=== PATIENT | male | born 1965 | race African-American/Black ===

== ENCOUNTER 2017-10-26 01:21 | Emergency (ER) | payer OTHER ==
--- NOTE | 2017-10-26 01:49 | PDOC ---
History of Present Illness - General History Source: Patient Exam Limitations: No Limitations - History of Present Illness Initial Comments: 10/26/17 04:28 Patient is a 52 year old male with a significant past medical history of Polysubstance abuse, who presents to the ED with complaints of right super pubic pain that began just prior to ED arrival. Patient reports experiencing sudden onset of right super pubic pain that began this afternoon and has shown no signs of subsiding. Patient does not rate pain on scale but does say it is severe enough that he is unable to sit up secondary to pain. He reports pain radiates down to his groin as well as to his lower abdomen and left superpubic area. Denies chest pain, Sob. Denies nausea, vomiting. Denies fevers, chills. Denies trauma to affected area. Denies any other symptoms. Allergies: None Social history: Current everyday smoker. No alcohol. Current Marijuana and cocaine user (last used yesterday). Surgical history: None PMD: None <Ari Arvizu - Last Filed: 10/26/17 04:28> <Susie Borrero - Last Filed: 10/26/17 06:12> - General Stated Complaint: ABDOMINAL PAIN Time Seen by Provider: 10/26/17 01:48 Past History <Ari Arvizu - Last Filed: 10/26/17 04:28> - Past Medical History Anemia: Yes (HX SICKLE CELL TRAIT) Asthma: Yes (Uses Albuterol Inhaler.) Cancer: No Cardiac Disorders: No CVA: No COPD: No CHF: No Dementia: No Diabetes: No GI Disorders: No Disorders: No HTN: No Hypercholesterolemia: No Kidney Stones: No Liver Disease: No Seizures: No Thyroid Disease: No - Surgical History Abdominal Surgery: No Appendectomy: No Cardiac Surgery: No Cholecystectomy: No Lung Surgery: No Neurologic Surgery: No Orthopedic Surgery: Yes ( 2005 FX CHEEK BONE,BOTH) - Reproductive History Testicular Surgery: No - Suicide/Smoking/Psychosocial Hx Smoking History: Current every day smoker Have you smoked in the past 12 months: Yes Number of Cigarettes Smoked Daily: 10 Cigars Per Day: 0 'Breaking Loose' booklet given: 09/01/17 (GIVEN ON UNIT.) Hx Alcohol Use: No Drug/Substance Use Hx: Yes (PCP x 2 week) Substance Use Type: Cocaine (100 daily) Hx Substance Use Treatment: Yes (detox. [facility], [facility]) <BorreroSusie - Last Filed: 10/26/17 06:12> - Past Medical History Allergies/Adverse Reactions: Allergies Allergy/AdvReac Type Severity Reaction Status Date / Time No Known Allergies Allergy Verified 10/26/17 02:33 Review of Systems - Review of Systems Able to Perform ROS?: Yes Comments:: 10/26/17 04:28 GENERAL/CONSTITUTIONAL: No fever or chills. No weakness. HEAD, EYES, EARS, NOSE AND THROAT: No change in vision. No ear pain or discharge. No sore throat. CARDIOVASCULAR: No chest pain or shortness of breath. RESPIRATORY: No cough, wheezing, or hemoptysis. GASTROINTESTINAL: No nausea, vomiting, diarrhea or constipation. GENITOURINARY: +Right superpubic pain. No dysuria, frequency, or change in urination. MUSCULOSKELETAL: No joint or muscle swelling or pain. No neck or back pain. SKIN: No rash NEUROLOGIC: No headache, vertigo, loss of consciousness, or change in strength/ sensation. ENDOCRINE: No increased thirst. No abnormal weight change. HEMATOLOGIC/LYMPHATIC: No anemia, easy bleeding, or history of blood clots. ALLERGIC/IMMUNOLOGIC: No hives or skin allergy. All Other Systems: Reviewed and Negative <Ari Arvizu - Last Filed: 10/26/17 04:28> *Physical Exam - Vital Signs Last Vital Signs Temp Pulse Resp BP Pulse Ox 98.1 F 87 16 158/103 100 10/26/17 02:33 10/26/17 02:33 10/26/17 02:33 10/26/17 02:33 10/26/17 02:33 - Physical Exam Comments: 10/26/17 04:28 GENERAL: +Limited Exam due to non compliance. Awake, alert, and fully oriented, in no acute distress HEAD: No signs of trauma EYES: PERRLA, EOMI, sclera anicteric, conjunctiva clear ENT: Auricles normal inspection, hearing grossly normal, nares patent, oropharynx clear without exudates. Moist mucosa NECK: Normal ROM, supple, no lymphadenopathy, JVD, or masses LUNGS: Breath sounds equal, clear to auscultation bilaterally. No wheezes, and no crackles HEART: Regular rate and rhythm, normal S1 and S2, no murmurs, rubs or gallops ABDOMEN: +Gassy. Soft, nontender, normoactive bowel sounds. No guarding, no rebound. No masses EXTREMITIES: Normal range of motion, no edema. No clubbing or cyanosis. No cords, erythema, or tenderness NEUROLOGICAL: Cranial nerves II through XII grossly intact. Normal speech, normal gait SKIN: Warm, Dry, normal turgor, no rashes or lesions noted. <Ari Arvizu - Last Filed: 10/26/17 04:28> ED Treatment Course - LABORATORY CBC & Chemistry Diagram: 10/26/17 05:00 <Susie Borrero - Last Filed: 10/26/17 06:12> Medical Decision Making - Medical Decision Making 10/26/17 03:58 Pt complains of right inguinal pain and right testicle pain. Exam is normal. Pt is afebrile. He denies having sex. Last sex encounter was over 2 months ago. Pt does no heavy lifting. He will have a UA done and basic labs. In the AM we will get a scrotal sono and he will be signed out to the day ER team. 10/26/17 06:12 CBC is normal. CHem and UA are still pending. <Susie Borrero - Last Filed: 10/26/17 06:12> *DC/Admit/Observation/Transfer - Attestations Scribe Attestion: 10/26/17 04:28 Documentation prepared by Ari Arvizu, acting as medical language specialist for Susie Borrero MD/DO. <Ari Arvizu - Last Filed: 10/26/17 04:28>
[2017-10-26 02:35] VITALS: BMI 28.1
[2017-10-26 05:55] LABS: HEMATOCRIT 43.3 % (35.4-49); MEAN PLT VOLUME 8.9 fl (7.5-11.1); WHITE BLOOD COUNT 6.3 K/mm3 (4.0-10.0)
[2017-10-26 05:59] LABS: BASO % 1.2 % (0-2.0); HEMOGLOBIN 14.4 GM/dL (11.7-16.9); LYMPH % 18.9 % (8-40); MCH 28.6 pg (25.7-33.7); MCHC 33.3 g/dl (32.0-35.9); MEAN CELL VOLUME 85.9 fl (80-96); MONO % 13.8 % (3.8-10.2); NEUT % 65.1 % (42.8-82.8); PLATELET COUNT 198 K/MM3 (134-434); RBC 5.04 M/mm3 (4.00-5.60); RDW 14.4 % (11.9-15.9)
[2017-10-26 08:02] VITALS: BP 132/76; PULSE 65; TEMP 98.3
[2017-10-26 09:46] LABS: URINE APPEARANCE CLEAR; URINE BILIRUBIN NEGATIVE (NEGATIVE); URINE BLOOD NEGATIVE (NEGATIVE); URINE COLOR YELLOW; URINE GLUCOSE (UA) NEGATIVE (NEGATIVE); URINE KETONE TRACE (NEGATIVE); URINE NITRITE NEGATIVE (NEGATIVE); URINE PROTEIN NEGATIVE (NEGATIVE); URINE UROBILINOGEN 4.0 E.U/dl mg/dL (0.2-1.0)
[2017-10-26 10:03] LABS: URINE LEUK ESTERASE 1+ (NEGATIVE)
[2017-10-26 10:11] LABS: EPI CELLS RARE /HPF (FEW); URINE MUCUS RARE
--- NOTE | 2017-10-26 10:12 | PDOC ---
*Physical Exam - Vital Signs Last Vital Signs Temp Pulse Resp BP Pulse Ox 98.3 F 65 16 132/76 97 10/26/17 07:25 10/26/17 07:25 10/26/17 07:25 10/26/17 07:25 10/26/17 07:25 ED Treatment Course - LABORATORY CBC & Chemistry Diagram: 10/26/17 05:00 - ADDITIONAL ORDERS Additional order review: Laboratory Results 10/26/17 09:20 Urine Color Yellow Urine Appearance Clear Urine pH 7.0 Ur Specific [place] 1.020 Urine Protein Negative Urine Glucose (UA) Negative Urine Ketones Trace H Urine Blood Negative Urine Nitrite Negative Urine Bilirubin Negative Urine Urobilinogen 4.0 e.u/dl Ur Leukocyte Esterase 1+ H 10/26/17 05:00 RBC 5.04 MCV 85.9 MCHC 33.3 RDW 14.4 MPV 8.9 Neutrophils % 65.1 Lymphocytes % 18.9 Monocytes % 13.8 H Eosinophils % 1.0 Basophils % 1.2 - RADIOLOGY Radiology Studies Ordered: Category Date Time Status SCROTUM AND CONTENTS US [US] Stat Ultrasound 10/26/17 07:04 Completed Medical Decision Making - Medical Decision Making 10/26/17 10:05 pt signed ou tto me from dr. Borrero - 52y M here wit hscrotal pain for a few days, no associated fever/chills, penile d/c. Pain is interminttent/aching. on exam pt has mild tenderness of right testicle, no focal tenderness n oedema penile exam unermarkable ua neg cbc neg suspect epididymidis will treat with abx will have pt fu with PMD *DC/Admit/Observation/Transfer Diagnosis at time of Disposition: Epididymitis - Discharge Dispostion Disposition: HOME Condition at time of disposition: Improved Admit: No - Referrals Referrals: Jameel Rodriguez MD [Staff Physician] - - Patient Instructions Printed Discharge Instructions: DI for Epididymitis Additional Instructions: Return to the emergency department immediately with ANY new, persistent or worsening symptoms including fever/chills, worsening pain or other concerns. You MUST call and follow up with your doctor tomorrow for further evaluation of your symptoms. Results were discussed with you. Please make sure your doctor reviews the results of your emergency evaluation. If you had any xrays during your visit, it was read preliminarily by myself, a Radiologist will review it and if there are any additional findings we will call you . Print Language: BULGARIAN - Post Discharge Activity
== END 2017-10-26 10:24 | disposition home or self-care (01) ==
LOC: JER 01:21
DX: N45.1 Epididymitis (principal); J45.909 Unspecified asthma, uncomplicated; D57.3 Sickle-cell trait; F14.10 Cocaine abuse, uncomplicated; F16.10 Hallucinogen abuse, uncomplicated
CPT/HCPCS: 36415; 76870-TC; 81003; 81015; 85025; 99282-25

== ENCOUNTER 2017-12-17 08:23 | Inpatient (IN) | payer OTHER ==
[2017-12-17 10:57] VITALS: BMI 24.3
--- NOTE | 2017-12-17 12:45 | HP ---
Admission [facility] Chief Complaint: REHAB TX FOR DRUGS Allergies/Adverse Reactions: Allergies Allergy/AdvReac Type Severity Reaction Status Date / Time No Known Allergies Allergy Verified 12/17/17 11:13 History of Present Illness: 52 Y/O AA/MALE WITH A HX OF CRACK AND PCP DEPENDENCE SEEKING REHAB TX Exam Limitations: No Limitations - Ebola screening Have you traveled outside of the country in the last 21 days: No (N) Have you had contact with anyone from an Ebola affected area: No Have you been sick,other than usual withdrawal symptoms: No Do you have a fever: No - Review of Systems Constitutional: Chills, Loss of Appetite, Night Sweats, Changes in sleep, Unintentional Wgt. Loss EENT: reports: Blurred Vision, Nose Congestion, Dental Problems (MISSING TEETH/ UPPER PARTIAL DENTURES) Respiratory: reports: Shortness of Breath (HX ASTHMA-MDI), Wheezing Cardiac: reports: Lightheadedness GI: reports: Poor Fluid Intake : reports: No Symptoms Reported Musculoskeletal: reports: Back Pain, Joint Pain, Muscle Pain Integumentary: reports: Bruising (RIGHT KNEE DUE TO FALL YESTERDAY--DID NOT GO TO ER) Neuro: reports: Headache, Numbness, Tingling, Dizziness Endocrine: reports: No Symptoms Reported Hematology: reports: No Symptoms Reported Psychiatric: reports: Orientated x3, Anxious, Depressed Other Systems: Reviewed and Negative Patient History - Patient Medical History Hx Anemia: Yes (HX SICKLE CELL TRAIT) Hx Asthma: Yes (MDI) Hx Chronic Obstructive Pulmonary Disease (COPD): No Hx Cancer: No Hx Cardiac Disorders: No Hx Congestive Heart Failure: No Hx Hypertension: No Hx Hypercholesterolemia: No Hx Pacemaker: No HX Cerebrovascular Accident: No Hx Seizures: No Hx Dementia: No Hx Diabetes: No Hx Gastrointestinal Disorders: No Hx Liver Disease: No Hx Genitourinary Disorders: No Hx Sexually Transmitted Disorders: No Hx Renal Disease (ESRD): No Hx Thyroid Disease: No Hx Human Immunodeficiency Virus (HIV): No ( NEGATIVE HX.) Hx Hepatitis C: No (NEGATIVE HISTORY.) Hx Depression: Yes Hx Suicide Attempt: No (DENIES S/I) Hx Bipolar Disorder: Yes (Meds. in past, None currently.) Hx Schizophrenia: Yes - Patient Surgical History Past Surgical History: Yes Hx Neurologic Surgery: No Hx Cataract Extraction: No Hx Cardiac Surgery: No Hx Lung Surgery: No Hx Breast Surgery: No Hx Breast Biopsy: No Hx Abdominal Surgery: No Hx Appendectomy: No Hx Cholecystectomy: No Hx Genitourinary Surgery: No Hx Section: No Hx Orthopedic Surgery: Yes ( 2004 FX CHEEK BONE,BOTH) Anesthesia Reaction: No - PPD History Previous Implant?: Yes Documented Results: Negative w/proof Implanted On Prior [facility] Admission?: Yes Date: 09/03/17 Results: 0 mm PPD to be Administered?: No - Reproductive History Patient is a Female of Child Bearing Age (11 -55 yrs old): No (MALE) - Smoking Cessation Smoking history: Current every day smoker Have you smoked in the past 12 months: Yes Aproximately how many cigarettes per day: 10 Cigars Per Day: 0 Hx Chewing Tobacco Use: No Initiated information on smoking cessation: Yes 'Breaking Loose' booklet given: 12/17/17 - Substance & Tx. History Hx Alcohol Use: No (DENIES) Hx Substance Use: Yes (CRACK/COCAINE/PCP) Substance Use Type: Cocaine (AND PCP) Hx Substance Use Treatment: Yes (LAST TX AT [facility]) - Substances Abused Crack Route: Smoking Frequency: Daily Amount used: $200-300 Age of first use: 19 Date of Last Use: 12/17/17 PCP Route: Smoking Frequency: Daily Amount used: $30 Age of first use: 14 Date of Last Use: 12/16/17 Family Disease History - Family Disease History Family History: Denies Admission Physical Exam BHS - Vital Signs Vital Signs: Vital Signs - 24 hr 12/17/17 10:54 Temperature 97.2 F L Pulse Rate 61 Respiratory 20 Rate Blood Pressure 108/67 - Physical General Appearance: Yes: Disheveled, Anxious HEENTM: Yes: EOMI, Normocephalic, OMAR, Pharynx Normal Respiratory: Yes: Chest Non-Tender, Lungs Clear, Normal Breath Sounds, No Respiratory Distress Neck: Yes: Supple, Trachea in good position Breast: Yes: Breast Exam Deferred Cardiology: Yes: Regular Rhythm, Regular Rate, S1, S2 Abdominal: Yes: Normal Bowel Sounds, Non Tender, Flat Genitourinary: Yes: Other (N/C) Back: Yes: Within Normal Limits Musculoskeletal: Yes: full range of Motion, Gait Steady Extremities: Yes: Normal Range of Motion, Non-Tender Neurological: Yes: greens cutter II-XII NML intact, Fully Oriented, Alert, Motor Strength 5/5 Integumentary: Yes: Dry, Warm, Rash (EXTREME DRY,SCALY FEET/SKIN) Lymphatic: Yes: Within Normal Limits - Diagnostic (1) Asthma Current Visit: Yes Status: Chronic Qualifiers: Asthma severity: mild Asthma persistence: intermittent Asthma complication type: uncomplicated Qualified Code(s): J45.20 - Mild intermittent asthma, uncomplicated (2) Cocaine dependence, uncomplicated Current Visit: Yes Status: Chronic (3) Nicotine dependence Current Visit: Yes Status: Acute Qualifiers: Nicotine product type: cigarettes Substance use status: uncomplicated Qualified Code(s): F17.210 - Nicotine dependence, cigarettes, uncomplicated (4) PCP dependence Current Visit: Yes Status: Chronic (5) Sickle cell trait Current Visit: Yes Status: Chronic (6) Tinea pedis Current Visit: Yes Status: Acute Qualifiers: Laterality: bilateral Qualified Code(s): B35.3 - Tinea pedis (7) History of onychomycosis Current Visit: Yes Status: Chronic Cleared for Admission [facility] - Detox or Rehab Claeared for Rehab Admission: Yes [facility] Breath Alcohol Content Breath Alcohol Content: 0 Urine Drug Screen - Results Drug Screen Negative: No Urine Drug Screen Results: MOOKIE-Cocaine, PCP-Phencyclidine Inpatient Rehab Admission - Initial Determination Are CD services needed?: Yes Free of communicable disease: Yes Not in need of hospitalization: Yes - Rehab Admission Criteria Patient is meeting Inpatient Rehab admission criteria:: Yes
[2017-12-17] MEDS ORDERED: MAGNESIUM CITRATE 300 ML BOTTLE PO PRN (13:17)
[2017-12-17] MEDS ORDERED: MENTHOL/PHENOL 1 EACH UD MM PRN (13:17)
[2017-12-17] MEDS ORDERED: NICOTINE POLACRILEX 2 MG GUM BUC PRN (13:17)
[2017-12-17] MEDS ORDERED: MAGNESIUM HYDROX 2400MG/30ML ORAL SUSPENSION 30 ML CUP PO PRN (13:17)
[2017-12-17] MEDS ORDERED: MAG HYDROX/AL HYDROX/SIMETH 30 ML UNIT-DOSE CUP PO PRN (13:17)
[2017-12-17] MEDS ORDERED: P-EPHED 60MG/TRIPROLIDI 2.5MG TABLET PO PRN (13:17)
[2017-12-17] MEDS ORDERED: guaiFENesin/D-METHORPHAN HB 10 ML UNIT-DOSE CUPS PO PRN (13:17)
[2017-12-17] MEDS ORDERED: ACETAMINOPHEN 325 MG TABLET (FP) PO PRN (13:17)
[2017-12-17] MEDS ORDERED: IBUPROFEN 400 MG TABLET (FP) PO PRN (13:17)
[2017-12-17] MEDS ORDERED: LOPERAMIDE HCL 2 MG CAPSULE PO PRN (13:17)
[2017-12-17] MEDS ORDERED: COLLOIDAL OATMEAL 1 BAR EACH TP PRN (13:19)
--- NOTE | 2017-12-17 14:30 | HP ---
Psychiatrist Admission - Data Date of interview: 12/17/17 Admission source: Self-referred Identifying data: This is the second [facility] Inpatient Rehabilitation admission for this 52 years old single Black male, unemployed onfood stamp, homeless Medical History: Significant for sickle cell trait, bronchial asthma and history of surgery for fracture of mandible in 2004. Smokes 10 cigarettes daily Psychiatric History: Patient is anon cooperative historian. He is very irritable , hostile and verbally abusive. History is substracted fro previous admissions to this facility. On 2 previous inpatient rehab admissions to (Sep 2015, Aug 2017), he reported being diagnosed with Bipolar schizophrenia with 3-4 psychiatric hospitalizations. Reportedly, he was on Zyprexa 10 mg po HS and Vistaril 100 mg po HS. He was continued on these medications. Now he told engineering writer that he has nit been taking medication and does not want to take any except Benadryl for insomnia Physical/Sexual Abuse/Trauma History: Denies history of sexual, physical and verbal abuse. Vital Signs: Vital Signs - 24 hr 12/17/17 10:54 Temperature 97.2 F L Pulse Rate 61 Respiratory 20 Rate Blood Pressure 108/67 Allergies/Adverse Reactions: Allergies Allergy/AdvReac Type Severity Reaction Status Date / Time No Known Allergies Allergy Verified 12/17/17 11:13 Date of last physical exam: 12/17/17 Concur with the findings of this exam: Yes - Substance Abuse/Tx History Hx Alcohol Use: No Hx Substance Use: Yes (Started smoking pcp at 14, consumes $30 worth daily. Last smoked on 12/16/17) Substance Use Type: Cocaine (Started smoking crack cocaine at age 19, consumes $ 200-300 worth daily.Last smoked on 12/17/17) Hx Substance Use Treatment: Yes (2 previous inpt detox & 2 inpt rehab admissions @ [facility]) Mental Status Exam - Mental Status Exam Alert and Oriented to: Time, Place, Person Cognitive Function: Fair Psychiatric Findings - Problem List ([place] 1, 2,3) (1) Cocaine dependence Current Visit: Yes Status: Acute (2) Phencyclidine dependence Current Visit: Yes Status: Acute (3) Nicotine dependence Current Visit: Yes Status: Chronic Qualifiers: Nicotine product type: cigarettes Substance use status: in withdrawal Qualified Code(s): F17.213 - Nicotine dependence, cigarettes, with withdrawal (4) Schizoaffective disorder, bipolar type Current Visit: Yes Status: Chronic (5) Substance induced mood disorder Current Visit: Yes Status: Acute (6) Substance-induced sleep disorder Current Visit: Yes Status: Acute (7) Asthma Current Visit: Yes Status: Chronic Qualifiers: Asthma severity: mild Asthma persistence: intermittent Asthma complication type: uncomplicated Qualified Code(s): J45.20 - Mild intermittent asthma, uncomplicated (8) Sickle cell trait Current Visit: Yes Status: Chronic - Initial Treatment Plan Initial Treatment Plan: 1) Start Benadryl 50 mg po HS prn for for insomnia. 2) Monitor progress
[2017-12-17 14:39] LABS: HEMATOCRIT 41.9 % (35.4-49); HEMOGLOBIN 14.1 GM/dL (11.7-16.9); MCH 28.8 pg (25.7-33.7); MCHC 33.7 g/dl (32.0-35.9); MEAN CELL VOLUME 85.5 fl (80-96); MEAN PLT VOLUME 8.4 fl (7.5-11.1); PLATELET COUNT 238 K/MM3 (134-434); RBC 4.89 M/mm3 (4.00-5.60); RDW 14.8 % (11.9-15.9); WHITE BLOOD COUNT 4.3 K/mm3 (4.0-10.0)
[2017-12-17 14:45] LABS: ALBUMIN 3.7 g/dl (3.4-5.0); ANION GAP 11 (8-16); BILIRUBIN,TOTAL 0.8 mg/dL (0.2-1.0); BLOOD UREA NITROGEN 11 mg/dL (7-18); CALCIUM 9.1 mg/dL (8.5-10.1); CHLORIDE 105 mmol/L (98-107); CO2 27 mmol/L (21-32); GLUCOSE,RANDOM 113 mg/dL (74-106); POTASSIUM 3.9 mmol/L (3.5-5.1); SGOT/AST 24 U/L (15-37); SGPT/ALT 37 U/L (12-78); SODIUM 143 mmol/L (136-145); TOT PROT 6.8 g/dl (6.4-8.2)
[2017-12-17 14:46] LABS: ALK PHOS 79 U/L (45-117)
[2017-12-17] MEDS: MINERAL OIL/PETROLAT/WATER TOPICAL CREAM 113 GM JAR TP SCH (15:41)
[2017-12-17] MEDS: NICOTINE 14 MG/24 HOURS TOPICAL PATCH TD SCH (15:42)
[2017-12-17] MEDS: TOLNAFTATE 1% CREAM 15 GM TUBE TP SCH ×2 (15:42→21:27)
[2017-12-17] MEDS: BACITRACIN 0.9 GM PACKET TP SCH (15:42)
[2017-12-17] MEDS: THIAMINE HCL 100 MG TABLET (FP) PO SCH (21:27)
[2017-12-17] MEDS: hydrOXYzine PAMOATE 50 MG CAPSULE (FP) PO PRN (22:10)
[2017-12-17] MEDS: MELATONIN 5 MG TABLETS PO PRN (22:17)
[2017-12-18 01:44] LABS: URINE APPEARANCE CLEAR; URINE BILIRUBIN NEGATIVE (<2.0 mg/dL); URINE BLOOD NEGATIVE (NEGATIVE); URINE COLOR DKYELLOW; URINE GLUCOSE (UA) NEGATIVE (NEGATIVE); URINE KETONE NEGATIVE (NEGATIVE); URINE LEUK ESTERASE NEGATIVE (NEGATIVE); URINE NITRITE NEGATIVE (NEGATIVE); URINE PROTEIN NEGATIVE (NEGATIVE); URINE UROBILINOGEN 4.0 E.U/dl mg/dL (0.2-1.0)
[2017-12-18] MEDS: BACITRACIN 0.9 GM PACKET TP SCH (09:08)
[2017-12-18] MEDS: PRENATAL VITAMINS W/ FOLIC ACID TABLET (FP) PO SCH (09:08)
[2017-12-18] MEDS: MINERAL OIL/PETROLAT/WATER TOPICAL CREAM 113 GM JAR TP SCH (09:08)
[2017-12-18] MEDS ORDERED: PT OWN MED DRAWER 7, Y5N ONE (09:09)
[2017-12-18] MEDS: TOLNAFTATE 1% CREAM 15 GM TUBE TP SCH ×2 (09:10→21:37)
[2017-12-18] MEDS: NICOTINE 14 MG/24 HOURS TOPICAL PATCH TD SCH (09:10)
--- NOTE | 2017-12-18 10:07 | EKG ---
Test Reason : Blood Pressure : / mmHG Vent. Rate : 064 BPM Atrial Rate : 064 BPM P-R Int : 178 ms QRS Dur : 098 ms QT Int : 424 ms P-R-T Axes : 069 -02 -20 degrees QTc Int : 437 ms SINUS RHYTHM WITH MARKED SINUS ARRHYTHMIA INCOMPLETE RIGHT BUNDLE BRANCH BLOCK T WAVE ABNORMALITY, CONSIDER INFERIOR ISCHEMIA ABNORMAL ECG WHEN COMPARED WITH ECG OF 01-SEP-2017 23:29, NO SIGNIFICANT CHANGE WAS FOUND Confirmed by LISSY SUTTON MD ([id number]) on 12/18/2017 10:07:03 AM Referred By: Confirmed By:LISSY SUTTON MD
[2017-12-18] MEDS ORDERED: diphenhydrAMINE HCL 50 MG CAPSULE PO PRN (11:59)
[2017-12-18] MEDS: MELATONIN 5 MG TABLETS PO PRN (21:37)
[2017-12-18] MEDS: THIAMINE HCL 100 MG TABLET (FP) PO SCH (21:37)
[2017-12-19] MEDS: hydrOXYzine PAMOATE 50 MG CAPSULE (FP) PO PRN (04:06)
[2017-12-19 07:36] VITALS: BP 133/86; PULSE 82; TEMP 97.7
[2017-12-19] MEDS: PRENATAL VITAMINS W/ FOLIC ACID TABLET (FP) PO SCH (09:46)
[2017-12-19] MEDS: NICOTINE 14 MG/24 HOURS TOPICAL PATCH TD SCH (09:46)
[2017-12-19] MEDS: BACITRACIN 0.9 GM PACKET TP SCH (09:47)
[2017-12-19] MEDS: TOLNAFTATE 1% CREAM 15 GM TUBE TP SCH (09:47)
[2017-12-19] MEDS: MINERAL OIL/PETROLAT/WATER TOPICAL CREAM 113 GM JAR TP SCH (09:48)
--- NOTE | 2017-12-19 11:26 | PN ---
Keri Progress Note Note: Psychiatry Attending's flight communications officer note : Called by nurse Horacio. Issue : patient is disruptive on the unit. Mr Wiggins is involved in an argument with a peer. Brazing Machine Tender came to evaluate the situation. Patient NOT found on the unit. Removed by Security personnel. Not seen by psychiatrist. Discussed with Chief Airport Guide on duty.
== END 2017-12-19 15:04 | disposition left against medical advice (07) | DRG 770 ==
LOC: YASAS 08:23 → Y3W 13:14
PROVIDERS: ADMIT Psychiatry & Neurology Psychiatry; ATTEND Psychiatry & Neurology Psychiatry
PROC: HZ42ZZZ Group Counseling for Substance Abuse Treatment, Cognitive-Behavioral (ICD-10-PCS; principal; 2017-12-17)
DX: F14.20 Cocaine dependence, uncomplicated (principal); F16.20 Hallucinogen dependence, uncomplicated; F17.213 Nicotine dependence, cigarettes, with withdrawal; F25.0 Schizoaffective disorder, bipolar type; F19.282 Other psychoactive substance dependence with psychoactive substance-induced sleep disorder; F19.24 Other psychoactive substance dependence with psychoactive substance-induced mood disorder; J45.20 Mild intermittent asthma, uncomplicated; D57.3 Sickle-cell trait; Z59.0 Homelessness
CPT/HCPCS: 36415; 80053; 81003; 85027; 86593; 87389; 93005; 93010